=== PATIENT | female | born 1960 | race African-American/Black ===

== ENCOUNTER 2021-08-12 21:05 | Emergency (ER) | payer OTHER ==
[2021-08-12 22:46] LABS: BASOPHIL 0.3 % (0-2); EOSINOPHIL 2.4 % (0-5); HGB 11.4 g/dl (12.5-16.0); LYMPHOCYTE 44.3 % (15-48); MCH 26.4 pg (25.0-31.0); MCHC 32.6 g/dL (32.0-36.0); MONOCYTE 4.9 % (0-12); MPV 10.5 fL (6.0-9.5); NEUTROPHIL 47.8 % (41-80); NRBC 0; RBC 4.32 M/uL (4.20-5.40); RDW 13.6 % (11.5-14.0); WBC 5.9 K/uL (4.0-10.5)
[2021-08-12 23:01] LABS: BUN/CREAT RATIO (CALC) 18.7 RATIO; CREATININE 0.75 mg/dL (0.51-0.95); POTASSIUM 4.1 mmol/L (3.5-5.1)
[2021-08-12 23:06] LABS: PLT 166 K/uL (150-400)
[2021-08-12 23:20] LABS: CORONAVIRUS 2019 SARS-COV-2 NEGATIVE (NEGATIVE); INFLUENZA A NAA NEGATIVE (NEGATIVE)
[2021-08-12] MEDS ORDERED: MUCINEX1200 MG PO (23:47)
[2021-08-12] MEDS ORDERED: TESSALON PERLE100 MG PO (23:47)
[2021-08-12] MEDS ORDERED: XYZAL5 MG PO (23:47)
== END 2021-08-12 23:57 | disposition home or self-care (01) ==
LOC: FER 21:05
PROVIDERS: Nurse Practitioner Family
DX: B34.9 Viral infection, unspecified (principal); E11.65 Type 2 diabetes mellitus with hyperglycemia; I10 Essential (primary) hypertension; Z91.013 Allergy to seafood; Z79.4 Long term (current) use of insulin; Z79.899 Other long term (current) drug therapy; Z20.822 Contact with and (suspected) exposure to COVID-19
CPT/HCPCS: 36415; 71045; 80048; 84484; 85025; J7120; U0002